=== PATIENT | female | born 1960 | race Caucasian/White ===

== ENCOUNTER 2017-09-14 05:51 | Emergency (ER) | payer SELFPAY ==
[~2017-09-14] VITALS: Ht 147.3 cm; Wt 70.8 kg
[~2017-09-14 05:51] MED LIST: ACEBUTCAFT PO; AMLO5 PO; Cleocin HCl150 MG PO; DEXA4 PO; DIPATR PO; FLUO10 PO; LEVE500 PO; POTCHL20ER PO; PROM25 PO; Percocet 5-3251 EACH PO
[2017-09-14] MEDS ORDERED: Ultram50 MG PO (07:04)
[2017-09-14] MEDS ORDERED: IBUP800 PO (07:04)
== END 2017-09-14 07:46 | disposition home or self-care (01) ==
LOC: ER 05:51
DX: R09.1 Pleurisy (principal); Z88.0 Allergy status to penicillin; Z91.040 Latex allergy status; Z79.899 Other long term (current) drug therapy; I10 Essential (primary) hypertension; Z87.891 Personal history of nicotine dependence
CPT/HCPCS: 71046; 93005; 93010; 96374; 96375; 99284; J1885; J2405; J3010

== ENCOUNTER 2018-02-22 15:17 | Emergency (ER) | payer SELFPAY ==
[~2018-02-22] VITALS: Ht 147.3 cm; Wt 72.6 kg
[~2018-02-22 15:17] MED LIST changes: +IBUP800 PO; +Ultram50 MG PO
[2018-02-22] MEDS ORDERED: Permethrin60 GM TOP (15:43)
== END 2018-02-22 15:51 | disposition home or self-care (01) ==
LOC: ER 15:17
DX: B86 Scabies (principal); Z88.0 Allergy status to penicillin; Z91.040 Latex allergy status; Z79.899 Other long term (current) drug therapy; Z87.891 Personal history of nicotine dependence
CPT/HCPCS: 99282